=== PATIENT | male | born 1995 | race Caucasian/White ===

== ENCOUNTER 2025-01-04 19:56 | Emergency (ER) | payer SELFPAY ==
[2025-01-04 20:03] VITALS: BP 135/88
[2025-01-04 20:19] LABS: % Basophils 0.6 % (0-2); % Eosinophils 1.2 % (0-6); % Immature Granulocytes 0.3 % (0-0.5); % Lymphocytes 19.3 % (20.5-51.1); % Monocytes 8.5 % (1.7-9.3); % Neutrophils 70.1 % (42.2-75.2); Absolute Basophils 0.1 10^3/uL (0-0.2); Absolute Eosinophils 0.2 10^3/uL (0-0.7); Absolute Lymphocytes 2.7 10^3/uL (1.2-3.4); Absolute Monocytes 1.2 10^3/uL (0.1-0.6); Absolute Neutrophils 9.8 10^3/uL (1.4-6.5); Hematocrit 43.1 % (39.0-52.0); Hemoglobin 15.2 g/dL (13.0-18.0); Mean Corp Hgb Conc. 35.3 g/dL (33.0-37.0); Mean Corpuscular Hgb 31.9 pg (27.0-31.0); Mean Corpuscular Volume 90.5 fL (80.0-94.0); Mean Platelet Volume 9.9 fL (7.4-10.4); Nucleated Red Blood Cells % 0 % (-); Platelet Count 230 10^3/uL (130-400); Red Blood Cell Count 4.76 10^6/uL (4.70-6.10); Red Cell Dist. Width 12.1 % (11.5-14.5)
[2025-01-04 20:42] LABS: ALT (SGPT) 38 U/L (0-50); AST (SGOT) 25 U/L (17-59); Albumin 4.5 g/dl (3.5-5.0); Alkaline Phosphatase 85 U/L (38-126); Blood Urea Nitrogen 15 mg/dl (9-20); Calcium 9.9 mg/dl (8.4-10.2); Carbon Dioxide 27 mmol/L (22-30); Chloride 106 mmol/L (98-107); Glucose 123 mg/dl (70-99); Potassium 4.1 mmol/L (3.5-5.1); Sodium 141 mmol/L (135-145); Total Bilirubin 0.8 mg/dl (0.2-1.3); Total Protein 7.5 g/dl (6.3-8.2); eGFR > 60.00
[2025-01-04 21:57] LABS: COVID-19 Antigen Negative (Negative)
--- NOTE | 2025-01-05 | ED.GENMED ---
History of Present Illness
General
Chief Complaint: Cold/Flu/URI Symptoms
Source: patient
Exam Limitations: none
Time Seen by Provider: 01/04/25 23:58
Nursing documentation reviewed up to this point in time: agreed with
History of Present Illness
History of Present Illness:
Note:
CHIEF COMPLAINT(S)
Fever
HISTORY OF PRESENT ILLNESS
The patient is a 29-year-old male with a past medical history of asthma who presents with fever lasting approximately 12 hours and bilateral back pain described as painful upon deep inspiration. The patient reports occasional coughing and does note
congestion but denies sore throat, abdominal pain, nausea, or vomiting. Headaches occurred yesterday with the fever but have resolved. He denies any neck pain. Patient states that he has tried using his inhaler for his symptoms with did not help.
He denies wheezing. His and her mother were recently ill with similar symptoms and later diagnosed with pneumonia. He denies any falls or injury to the chest wall or the back. He denies any syncopal episodes.
PHYSICAL EXAM
Nursing notes reviewed and vital signs reviewed.
General: Patient is well appearing and in no acute distress; non-toxic
Skin: Warm and dry, no rashes or lesions
Head: Normocephalic, atraumatic
Eyes: Sclera non-icteric. EOMs intact.
Cardiac: Regular rate and rhythm, no murmurs
Pulm: Normal respiratory effort, lungs clear to auscultation bilaterally no wheezes, rales, rhonchi
Abdomen: No abdominal tenderness to palpation
Musculoskeletal: No midline spinal tenderness. Mild tenderness to palpation across the mid back bilaterally.
Neuro: CN II-XII intact, no focal neurologic deficits.
Psychiatric: Appropriate mood and affect.
DIFFERENTIAL DIAGNOSIS
The differential diagnosis includes, in no particular order and is not limited to:
1. Viral pleuritis
2. Bronchitis
3. Pleurisy
4. Musculoskeletal pain
5. Asthma exacerbation
6. Viral upper respiratory infection unlikely
7. Costochondritis
8. Atypical pneumonia
9. Pneumothorax
PLAN
CBC, CMP, viral swabs, chest x-ray
CHART REVIEW
No previous ER physician documentation or discharge summaries to review
MDM/DISPOSITION
The patient is a 29-year-old male with a past medical history of asthma who presents with fever lasting approximately 12 hours and bilateral back pain described as painful upon deep inspiration. He has associated coughing and upper respiratory
symptoms. He is in contact with family members who are sick with pneumonia. On physical exam he is well-appearing in no acute distress. His lungs are clear bilaterally. He is afebrile. He does have a leukocytosis which is expected with a viral
respiratory infection. His CMP is unremarkable. He is negative for COVID. His chest x-ray shows no acute cardiopulmonary process no evidence of pneumonia. Will start Medrol Dosepak for suspected pleurisy secondary to viral upper respiratory
infection. Patient stable for discharge. Discussed follow-up with primary.
Review of Systems
Review of Systems
All Other Systems: ROS reviewed and negative except as documented in HPI and ROS
Phy Exam
Physical Exam
Physical Exam:
see hpi
Sepsis
Sepsis Screening
Sepsis Assessment: Sepsis Ruled Out
Sepsis Screen
Sepsis Screen: Sepsis Ruled Out
Date: 01/05/25
Time: 07:04
Course
Orders/Labs/Results
Orders:
Orders
01/04/25 20:08
CR Chest - 2 Views Urgent
Reason For Exam: upper back pain with cough
01/04/25 20:13
Complete Blood Count/With Diff Urgent
Comprehensive Metabolic Panel Urgent
01/04/25 21:30
COVID-19 Antigen Urgent
Source: Nasal Swab
01/05/25 00:07
Ketorolac [Toradol] 15 mg IM NOW STA
Abnormal Lab Results
01/04/25
20:13
WBC 14.0 H 10^3/uL
(4.8-10.8)
MCH 31.9 H pg
(27.0-31.0)
Absolute Neuts (auto) 9.8 H 10^3/uL
(1.4-6.5)
Absolute Monos (auto) 1.2 H 10^3/uL
(0.1-0.6)
Lymphocytes % 19.3 L %
(20.5-51.1)
Glucose 123 H mg/dl
(70-99)
01/04/25 20:13
01/04/25 20:13
Vital Signs
Initial and Last Documented VS:
Initial Vital Signs
Temp Pulse Resp BP Pulse Ox
98 F 99 14 135/88 98
01/04/25 20:03 01/04/25 20:03 01/04/25 20:03 01/04/25 20:03 01/04/25 20:03
Last Documented Vital Signs
Temp Pulse Resp BP Pulse Ox
98 F 104 16 146/92 98
01/04/25 20:03 01/05/25 00:25 01/05/25 00:25 01/05/25 00:25 01/05/25 00:25
*Pulse Oximetry
SaO2: 98
Oxygen Mode of Delivery: Room air
Patient hypoxic: no
*Critical Care Note
Total Time (30-74mins, 75-104mins- exclusive of procedures): Not Applicable
ED Attending Note
-
Portions of this chart may have been created with voice recognition software.� Occasional wrong word or��sound alike� substitutions may have occurred due to the inherent limitations of voice recognition software.
Discharge Plan
Departure
Patient Disposition: Home (Routine Discharge)
Date of Disposition: 01/05/25
Time of Disposition: 00:22
Patient with high blood pressure during this ER visit?: Yes
Condition: Good
Discharge Problem:
Upper respiratory infection, Pleurisy
Instructions: Viral Upper Respiratory Infection, Adult (DC), BLOOD PRESSURE, Pleurisy
Prescriptions:
New
methylprednisolone [Medrol (Ricky)] 4 mg tablets,dose pack
See Rx Instructions .ROUTE .COMPLEX Qty: 21 0RF
Rx Instructions:
orally per package directions
Referrals:
UNKNOWN - PT DOES,NOT KNOW [Family Provider]
Activity Restrictions/Additional Instructions:
Medrol Dosepak has been sent to your pharmacy. Please follow package instructions for dosing. Please do not take ibuprofen while taking this medication.
You can take Tylenol as needed for your fevers.
As discussed, your chest x-ray does not show any evidence of pneumonia or pneumothorax. Please continue to stay well-hydrated and follow-up with your primary care provider in 1 week for reassessment. PLEASE RETURN TO THE EMERGENCY DEPARTMENT
SHOULD YOU DEVELOP CHEST PAIN, COUGHING UP OF BLOOD, FAINTING SPELLS, DIZZINESS, LIGHTHEADEDNESS, DIFFICULTY BREATHING, INTRACTABLE NAUSEA OR VOMITING, PERSISTENT FEVERS, OR ANY OTHER SIGNS OR SYMPTOMS WORRISOME TO YOU.
Interventions
Interventions:
*Risk Screen - Suicide Last Done: 01/04/25 20:03
*General Assessment Last Done: 01/04/25 20:07
*Neglect/Abuse Screening Last Done: 01/04/25 20:03
*ED- Fall Risk Assessment Last Done: 01/05/25 00:51
*ED COVID-19 Vaccine History Last Done: 01/05/25 00:51
*Nursing Disposition Last Done: 01/05/25 00:51
ED-Musculoskeletal Assessment Last Done: 01/05/25 00:51
ED- Pulmonary Assessment Last Done: 01/05/25 00:51
Discharge Date and Time
Discharge Date/Time: 01/05/25 00:52
Print Language: IRISH
[2025-01-05] MEDS: TORADOL 15 MG IM (00:22)
[2025-01-05 00:25] VITALS: BP 146/92
== END 2025-01-05 00:52 | disposition home or self-care (01) ==
LOC: EMR 19:56
PROVIDERS: Emergency Medicine; EMERGENCY PHYSICIAN Student in an Organized Health Care Education/Training Program
DX: R09.1 Pleurisy (principal); J06.9 Acute upper respiratory infection, unspecified; Z11.52 Encounter for screening for COVID-19; R03.0 Elevated blood-pressure reading, without diagnosis of hypertension; J45.909 Unspecified asthma, uncomplicated; G47.30 Sleep apnea, unspecified
CPT/HCPCS: 99284; 96372; 71046; 80053; 85025; 87811